=== PATIENT | male | born 1950 | race Caucasian/White ===

== ENCOUNTER → 2019-12-05 | Outpatient (CLI) | payer OTHER ==
[~2019-12-05] MED LIST: ALFUZOSIN HCL10 MG PO; ALPRAZOLAM 0.50.5 M1 PO; APPLE CIDER VI500 MG PO; CLARITIN10 M3 PO; CLOPIDOGREL75 MG PO; ESCITALOPRAM OX20 MG PO; FINASTERIDE5 MG PO; LIPITOR 40 MG T40 M1 PO; MELOXICAM7.5 MG PO; METFORMIN HCL500 M1 PO; METOPROLOL TART25 MG PO; MULTI VITAMIN1 EACH PO; NORVASC5 MG PO; OLMESARTAN MEDO40 MG PO; OMEPRAZOLE40 MG PO; PRAMIPEXOLE D0.25 MG PO; PROTONIX40 M2 PO; TAMSULOSIN HCL0.4 MG PO; TRAZODONE HCL50 MG PO; VITAMIN D350 MC3 PO
== END ==
LOC: LAB 08:23
PROVIDERS: ATTEND Orthopaedic Surgery
DX: Z01.812 Encounter for preprocedural laboratory examination (principal); Z20.828 Contact with and (suspected) exposure to other viral communicable diseases

== ENCOUNTER 2019-12-09 11:50 | Observation (INO) | payer OTHER ==
[2019-12-02 13:01] LABS: URINE BILIRUBIN NEGATIVE (Negative); URINE BLOOD NEGATIVE (Negative); URINE CLARITY CLEAR; URINE COLOR YELLOW; URINE GLUCOSE-RANDOM* NEGATIVE (Negative); URINE KETONES NEGATIVE (Negative); URINE LEUKOCYTES-REFLEX NEGATIVE (Negative); URINE NITRITE-REFLEX NEGATIVE (Negative); URINE PROTEIN (DIPSTICK) NEGATIVE (Negative); URINE SPECIFIC GRAVITY 1.015 (1.005-1.035); URINE UROBILINOGEN 0.2 E.U./dl (0.2-1.0)
[2019-12-02 13:11] LABS: HEMATOCRIT 38.7 % (42.0-52.0); HEMOGLOBIN 12.6 gm/dL (14.0-18.0); MCHC 32.6 g/dL (28.0-37.0); MCV 85.8 fL (80.0-100.0); RBC 4.51 mil/uL (4.50-6.00); RDW 14.1 % (10.5-14.5); WBC 6.6 thou/uL (4.0-11.0)
[2019-12-02 13:14] LABS: ALBUMIN 4.7 g/dL (3.4-5.0); CALCIUM 9.2 mg/dL (8.5-10.1); CREATININE 0.7 mg/dL (0.7-1.3); POTASSIUM 4.2 mmol/L (3.5-5.1)
[2019-12-02 13:27] LABS: PROTIME 10.7 Seconds (9.3-11.4)
[2019-12-03 05:07] LABS: GLYCOHEMOGLOBIN (HGB A1C) 6.6 % (4.8-5.6)
[~2019-12-09] VITALS: Ht 182.9 cm; Wt 133.8 kg
--- NOTE | ~2019-12-09 | O ---
[facility] [place] [address] OPERATIVE REPORT Name: LYNDA VO Room #: 437-P ADM IN M.R.#: [id number] Admission: 12/09/19 Attend Phys: James Santoro MD Discharge: Date of : 48 Report #: [id number] THIS REPORT FOR: cc: ABHISHEK MTZ MD Physician not on staff James Santoro MD ~ CC: ABHISHEK MTZ Physician staff James Santoro DATE OF SERVICE: 12/09/2019 PREOPERATIVE DIAGNOSIS: Right knee osteoarthritis. POSTOPERATIVE DIAGNOSIS: Right knee osteoarthritis. PROCEDURE: Right total knee arthroplasty using Navio robotic produce assistant. SURGEON: James Santoro MD. CORRUGATED FASTENER DRIVER: Mickie Izquierdo PA-C INDICATIONS FOR CORRUGATED FASTENER DRIVER: Throughout the case, extensive retraction and manipulation of the knee was required. This was afforded to me by my produce assistant. ANESTHESIA: LMA with an adductor canal block. IMPLANTS: [employer]hew size 7 Journey II BCS cobalt chrome femur, size 6 tibia, size 9 polyethylene and size 35 patella. TOURNIQUET TIME: 57 minutes. ESTIMATED BLOOD LOSS: 25 mL. COMPLICATIONS: None. SPECIMENS: None. CONDITION UPON LEAVING THE OPERATING ROOM: Stable. INDICATIONS FOR PROCEDURE: The patient is a 69-year-old gentleman with severe right knee osteoarthritis. He had failed conservative measures for this and after discussion with him, he elected for right total knee arthroplasty. DESCRIPTION OF PROCEDURE: Risks, benefits, alternatives, and complications were discussed in detail with the patient including but not limited to risk of [facility] [address] [place] [address] OPERATIVE REPORT Name: LYNDA VO Room #: 437-P ADM IN M.R.#: [id number] Admission: 12/09/19 Attend Phys: James Santoro MD Discharge: Date of : 48 Report #: [id number] anesthesia, risk of damage to nerves, arteries, blood vessels, risk for infection, bleeding, risk for continued knee pain, need for reoperation. Informed consent was obtained from the patient. Right knee was appropriately marked in the preoperative holding area. IV Ancef was given for preoperative antibiotics. He was brought to the operating room and placed in supine position on operating room table. LMA anesthesia was induced without complication. Tourniquet was placed on the right thigh. Right lower extremity was prepped and draped in normal sterile fashion. Timeout was performed properly identifying the patient, procedure as well as the instrumentation and implants. All in the operating room were in agreement. Right lower extremity was exsanguinated, tourniquet was inflated. Tourniquet time was 57 minutes. He had a previous medial parapatellar incision on the skin and this scar was used. Incision was made with 10 blade through the skin. Dissection was taken down sharply to the fascia and deep flaps were developed medially and laterally. Fresh 10 blade was used to make a medial parapatellar arthrotomy and the knee was inspected. There was severe tricompartmental osteoarthritis. The ACL and PCL were removed sharply. Reference pins were placed in the femur and the tibia and the knee was digitally mapped using the [email or web address] robotic system. Intraoperative plan was made. We sized the size 7 femur with a size 6 tibia and a size 10 spacer. After acceptance of the intraoperative plan, the distal femoral cut was made with a Navio bur. Distal femoral cutting block was pinned in place and the chamfer cuts were made. Attention was turned to the tibia. Remainder of the menisci was removed with Bovie cautery. Tibial resection guide was pinned in place using the Navio for placement and tibial resection was made. Flexion and extension gaps were then checked and found to be tight medially in extension. Medial osteophyte was removed from the tibia and a limited medial release using the pie crusting technique was performed. This balanced the knee well. The tibia was sized, found to be of size 6. The size 6 tibial trial was placed, pinned and punched. A size 7 femoral trial was placed and the box cut was made. This was then trialed with a size 9 polyethylene and size 9 polyethylene demonstrated 1-2 millimeter of laxity medially and laterally throughout range of motion of the knee. A 9 mm was resected from the posterior surface of the patella and a size 35 patellar trial button was placed. Knee was taken through range of motion, found to be stable, found to have good patellar tracking. Trial components were removed. Bony ends were thoroughly irrigated with normal saline. Final size 6 tibia, size 7 Journey II BCS cobalt chrome femur and a size 35 patella were cemented in place using standard cementation techniques. While the cement cured, periarticular injection consisting of morphine, ropivacaine, epinephrine and Toradol was placed around the knee joint capsule. After the cement cured, the tourniquet was deflated. Hemostasis was obtained with Bovie cautery. Final size 9 polyethylene was placed. A gram of vancomycin was placed deep in the joint. Fascia was closed with 0 Vicryl, 2-0 Vicryl, skin [address] [address] OPERATIVE REPORT Name: LYNDA VO Room #: 437-P [facility] IN M.R.#: [id number] Admission: 12/09/19 Attend Phys: James Santoro MD Discharge: Date of : 48 Report #: [id number] staple and a MASOUD dressing was applied. The patient tolerated this procedure well and went to recovery room under care of anesthesia postoperatively. By: [id number] James Santoro MD /nt
[2019-12-09 17:00] VITALS: BP 135/87
[2019-12-09 18:00] VITALS: BP 140/85
--- NOTE | 2019-12-09 18:30 | NUR ---
PT RECEIVED FROM THE REC RM AWAKE BUT DROWSY AND IN NO PAIN. FULLY ALERT BY DINNER AND AT WELL. RT KNEE DSNG DRY. POLAR NASRIN SCDS AND TEDS IN PLACE. VSS. AT BEDSIDE. THERAPY TO START TOMORROW.
[2019-12-09 19:52] VITALS: BP 137/80
--- NOTE | 2019-12-10 03:31 | NUR ---
ASSESSMENT COMPLETED. PT ALERT AND ORIENTED X 4. PLEASNT AND COOPEARTIVE. VOIDING ADEQUATELY PER URINAL. DENIES ANY NAUSEA. VSS. R KNEE WITH MASOUD DRSG INTACT WELL THE POLAR NASRIN IN PLACE. PT RATES THE PAIN TO THE R KNEE AT ABOUT 2-3. NEURO CHECK TO RLE IS INTACT. USING HIS CPAP TONIGHT.CALLS APPROPRIATELY. NO FURTHER CONCERNS AT THIS TIME.
[2019-12-10 05:30] VITALS: BP 127/83
[2019-12-10 06:02] LABS: HEMATOCRIT 37.1 % (42.0-52.0); HEMOGLOBIN 11.9 gm/dL (14.0-18.0); MCH 27.9 pg (26.0-34.0); MCV 87.2 fL (80.0-100.0); RBC 4.26 mil/uL (4.50-6.00); WBC 11.7 thou/uL (4.0-11.0)
[2019-12-10 06:13] LABS: CALCIUM 8.2 mg/dL (8.5-10.1); MAGNESIUM 1.8 mg/dL (1.8-2.4); POTASSIUM 4.7 mmol/L (3.5-5.1)
[2019-12-10 08:00] VITALS: BP 118/64
--- NOTE | 2019-12-10 11:05 | NUR ---
RD consult received. 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 Hx diabetes and A1C 6.6 well controlled. Admit for right TK and hoping to go home today. Pt and voiced no dietary questions. If does not discharge, add carb control to current diet order. Low nutrition risk
[2019-12-10 11:55] VITALS: BP 118/64
--- NOTE | 2019-12-10 12:04 | NUR ---
PT CARE ASSUMED AT 0700. A&Ox4. MASOUD DRESSING INTACT. POLARPACK/SCD'S/ [facility]ES IN PLACE. PAIN MANAGED WELL WITH PAIN MEDICATION ON BOARD. NEUROVASCULAR CHECKS WITHIN NORMAL RANGE. CPAP AT NIGHT. O2 AT 88% 2 LITERS APPLIED. AT RECHECK 96%. IV PATENT WITH NO REDNESS OR EDEMA, SALINE LOCKED. FALL PROTOCOL IN PLACE. CALL LIGHT IN REACH. AT BEDSITE. PT EDUCATED ON POLAR PACK AND MASOUD DRESSING. WILL CONTINUE TO MONITOR.
[2019-12-10 12:11] VITALS: BP 118/64
[2019-12-10 12:43] VITALS: BP 118/64
--- NOTE | 2019-12-10 13:19 | NUR ---
ASSESSMENT: CM REVIEWED CHART AND MET WITH PATIENT AND HIS . PT IS ALERT AND ORIENTED X4. PT IS S/P R TKA. PT REPORTS LIVING IN A HOUSE WITH HIS . PT REPORTS TWO STEPS WITH NO HANDRAILS TO ENTER. PT REPORTS ONCE INSIDE NO STEPS HE HAS TO USE. PT REPORTS HAVING A WALKER AT HOME. PT HAS OUTPATIENT THERAPY ARRANGED MONDAY AT [facility] AT 1330. PT IS TO WORK WITH THERAPY THIS AFTERNOON AND POSSIBLE DISCHARGE HOME WITH NO NEEDS. PT IS DOING OK WITHOUT OXYGEN PER RN. CM WILL CONTINUE TO FOLLOW POSSIBLE DISCHARGE HOME LATER TODAY.
== END 2019-12-10 14:53 | disposition home or self-care (01) ==
LOC: PRE 11:50 → TBA 12:41 → 4S 12:41 → ADMC 14:49 → PRE 15:29 → 4S 16:47
PROVIDERS: Nurse Practitioner Family; ADMIT Orthopaedic Surgery; ATTEND Orthopaedic Surgery
DX: M17.11 Unilateral primary osteoarthritis, right knee (principal); I10 Essential (primary) hypertension; E78.5 Hyperlipidemia, unspecified; E11.9 Type 2 diabetes mellitus without complications; G47.30 Sleep apnea, unspecified; N40.0 Benign prostatic hyperplasia without lower urinary tract symptoms; I25.10 Atherosclerotic heart disease of native coronary artery without angina pectoris; J96.20 Acute and chronic respiratory failure, unspecified whether with hypoxia or hypercapnia; Z79.84 Long term (current) use of oral hypoglycemic drugs; Z79.899 Other long term (current) drug therapy
CPT/HCPCS: 27447; S2900; 10102; 50010; 50101; 50415; 50954; 51130; 51225; 51412; 53000; 53078; 56527; 56528; 57095; 57103; 57110; 57127; 57180; 58239; 62110; 62900; 64039; 70005

== ENCOUNTER 2019-12-12 10:20 | Emergency (ER) | payer OTHER ==
[~2019-12-12] VITALS: Ht 152.4 cm; Wt 136.1 kg
[2019-12-12 11:34] LABS: ABSOLUTE NEUTROPHILS 6.6 thou/uL (1.4-8.2); BASOPHILS 0.3 % (0.0-2.0); EOSINOPHILS 0.8 % (0.0-3.0); HEMATOCRIT 28.4 % (42.0-52.0); LYMPHOCYTES 9.4 % (24.0-44.0); MCH 28.6 pg (26.0-34.0); MCHC 33.2 g/dL (28.0-37.0); MCV 85.9 fL (80.0-100.0); MONOCYTES 11.2 % (1.0-8.0); PLATELET COUNT 176 thou/uL (150-400); POLYS 78.3 % (36.0-66.0); RBC 3.31 mil/uL (4.50-6.00); RDW 13.9 % (10.5-14.5); WBC 8.4 thou/uL (4.0-11.0)
[2019-12-12 11:35] LABS: HEMOGLOBIN 9.5 gm/dL (14.0-18.0)
[2019-12-12 11:36] LABS: CALCIUM 9.1 mg/dL (8.5-10.1); CREATININE 1.4 mg/dL (0.7-1.3); POTASSIUM 4.1 mmol/L (3.5-5.1)
[2019-12-12 11:43] LABS: ALBUMIN 3.1 g/dL (3.4-5.0); DIRECT BILIRUBIN 0.2 mg/dL (<0.1-0.2); TOTAL BILIRUBIN 0.8 mg/dL (0.2-1.0); TOTAL PROTEIN 6.7 g/dL (6.4-8.2)
[2019-12-12 13:35] VITALS: BP 151/76
[2019-12-12 13:40] LABS: URINE BILIRUBIN NEGATIVE (Negative); URINE BLOOD NEGATIVE (Negative); URINE CLARITY CLEAR; URINE COLOR YELLOW; URINE GLUCOSE-RANDOM* NEGATIVE (Negative); URINE KETONES NEGATIVE (Negative); URINE LEUKOCYTES-REFLEX NEGATIVE (Negative); URINE NITRITE-REFLEX NEGATIVE (Negative); URINE PROTEIN (DIPSTICK) TRACE (Negative)
== END 2019-12-12 13:35 | disposition home or self-care (01) ==
LOC: ER 10:20
PROVIDERS: Nurse Practitioner
DX: G89.18 Other acute postprocedural pain (principal); M25.561 Pain in right knee; E11.9 Type 2 diabetes mellitus without complications; I10 Essential (primary) hypertension; E78.5 Hyperlipidemia, unspecified; F41.9 Anxiety disorder, unspecified; F32.9 Major depressive disorder, single episode, unspecified; K21.9 Gastro-esophageal reflux disease without esophagitis; Z96.651 Presence of right artificial knee joint; Z87.442 Personal history of urinary calculi; Z79.899 Other long term (current) drug therapy; Z91.048 Other nonmedicinal substance allergy status